=== PATIENT | male | born 1970 | race Caucasian/White ===

== ENCOUNTER 2018-01-28 10:11 | Emergency (ER) | payer SELFPAY ==
[2018-01-28] MEDS: HYDROCODONE/APAP (5/325) TAB PO (10:40)
[2018-01-28] MEDS: DIPHTH/TET/ACEL PERTUSS (ADULT) 0.5 ML VIAL IM* (10:41)
[2018-01-28] MEDS: LIDOCAINE 1% (MDV) 10 ML INJ INJ (10:41)
== END 2018-01-28 11:41 | disposition home or self-care (01) ==
LOC: FTE 10:11
DX: S61.211A Laceration without foreign body of left index finger without damage to nail, initial encounter (principal); W27.0XXA Contact with workbench tool, initial encounter; Y92.89 Other specified places as the place of occurrence of the external cause; Z23 Encounter for immunization
CPT/HCPCS: 12001; 73130-LT; 90471; 90715; 99284-25

== ENCOUNTER 2018-01-30 11:18 | Emergency (ER) | payer MEDICAID | END 2018-01-30 13:22 | disposition home or self-care (01) | LOC: FTE 11:18 | DX: S61.412D Laceration without foreign body of left hand, subsequent encounter (principal); W26.8XXD Contact with other sharp object(s), not elsewhere classified, subsequent encounter | CPT/HCPCS: 99282-25; Z7502 ==